=== PATIENT | male | born 1970 | race Caucasian/White ===

== ENCOUNTER → 2017-01-25 | Outpatient (CLI) | payer OTHER ==
[~2017-01-25] MED LIST: AMMONIUM LACTA140 GM TOP; CLOTRIMAZOLE/BE45 GM TOP; THERA-VITE W/ B1 TAB PO; TYLENOL WITH C1 EACH PO; [UNRECOGNIZED DRUG - OTHER] PO
== END | disposition disaster alternative care site (69) ==
LOC: GRAD 12:30
DX: N20.0 Calculus of kidney (principal); M41.9 Scoliosis, unspecified